=== PATIENT | female | born 1990 ===

== ENCOUNTER 2018-06-08 17:46 | Inpatient (IN) ==
[2018-06-08] MEDS ORDERED: ACETAMINOPHEN 500 MG TABLET PO STA (18:00)
[2018-06-08] MEDS ORDERED: SODIUM CHLORIDE 0.9% 1,000 ML IV STA (18:17)
[2018-06-08 18:22] LABS: Basophils % 0.2 % (0.0-0.8); Eosinophils % 0.2 % (0.00-10.9); Hematocrit 33.7 VOL% (35.7-47.0); Hemoglobin 10.8 GM/DL (12.0-16.0); Immature Granulocytes % 0.8 %; Immature Granulocytes Absolute 0.13 #; Lymphocytes # 0.8 10*3/uL (1.4-4.0); Mean Corpuscular Hemoglobin 28 PG (27-34); Mean Corpuscular Volume 88.5 FL (87-102); Mean Platelet Volume 8.9 FL (9.6-12.0); Monocytes # 0.7 10*3/uL (0.11-0.8); Monocytes % 4.1 % (1.7-12.7); Neutrophils % 89.7 % (38.7-73.9); Platelet Count 292 T/CUMM (130-400); Red Blood Count 3.81 MC/CUMM (3.8-5.5); Red Cell Distribution Width 15.8 % (9.3-17.3); White Blood Count 16.7 T/CUMM (4-12)
[2018-06-08 18:42] LABS: Albumin 2.4 G/DL (3.4-5.0); Bilirubin,Total 0.4 MG/DL (0.2-1.0); Calcium 7.8 MG/DL (8.5-10.1); Osmolality,Calculated 276.5 MOS/KG (273-304); Potassium 3.2 MMOL/L (3.5-5.1); Total Protein 6.3 G/DL (6.4-8.3)
[2018-06-08] MEDS ORDERED: SODIUM CHLORIDE 0.9% 1,800 ML IV ONE (19:35)
[2018-06-08] MEDS ORDERED: ONDANSETRON 4 MG/2 ML VIAL IV PRN (19:35)
[2018-06-08] MEDS ORDERED: POTASSIUM CHLORIDE 20 MEQ TABLET PO STA (19:46)
[2018-06-08] MEDS ORDERED: MAGNESIUM SULF RIDER 4 GM in PREMIX 1 EACH IV PRN (19:46)
[2018-06-08] MEDS ORDERED: MAGNESIUM SULF RIDER 2 GM in PREMIX 1 EACH IV PRN (19:46)
[2018-06-08] MEDS: ENOXAPARIN 40 MG/0.4 ML SYRINGE SUBCUT SCH (20:28)
[2018-06-08] MEDS: LEVOFLOXACIN INJ 500 MG in PREMIX 1 EACH IV SCH (20:31)
[2018-06-08] MEDS: SODIUM CHLORIDE 0.9% 1,000 ML IV SCH (22:42)
[2018-06-08] MEDS ORDERED: INFLUENZA VIRUS VACCINE 0.5 ML SYRINGE IM ONE (22:59)
[2018-06-08] MEDS ORDERED: PNEUMOCOCCAL VACCINE (23 VALENT) 0.5 ML VIAL IM ONE (23:06)
[2018-06-08] MEDS: ACETAMINOPHEN 325 MG TABLET PO PRN (23:38)
[2018-06-09] MEDS: MORPHINE 4 MG/1 ML VIAL IV PRN ×2 (01:47→09:36)
[2018-06-09] MEDS: SODIUM CHLORIDE 0.9% 1,000 ML IV SCH ×3 (04:05→19:50)
[2018-06-09 04:57] LABS: Basophils % 0.2 % (0.0-0.8); Eosinophils % 0.2 % (0.00-10.9); Hematocrit 32.7 VOL% (35.7-47.0); Hemoglobin 9.9 GM/DL (12.0-16.0); Immature Granulocytes % 1.1 %; Immature Granulocytes Absolute 0.17 #; Lymphocytes # 0.9 10*3/uL (1.4-4.0); Lymphocytes % 5.7 % (21.3-54.2); Mean Corpuscular HGB Conc 30.3 GM/DL (32-36); Mean Corpuscular Hemoglobin 27 PG (27-34); Mean Corpuscular Volume 89.6 FL (87-102); Mean Platelet Volume 9.3 FL (9.6-12.0); Monocytes # 1.1 10*3/uL (0.11-0.8); Monocytes % 6.9 % (1.7-12.7); Neutrophils # 13.6 10*3/uL (1.4-7.4); Neutrophils % 85.9 % (38.7-73.9); Platelet Count 252 T/CUMM (130-400); Red Blood Count 3.65 MC/CUMM (3.8-5.5); Red Cell Distribution Width 15.9 % (9.3-17.3); White Blood Count 15.9 T/CUMM (4-12)
[2018-06-09 05:26] LABS: Calcium 7.1 MG/DL (8.5-10.1); Osmolality,Calculated 279.4 MOS/KG (273-304); Potassium 3.5 MMOL/L (3.5-5.1)
[2018-06-09 05:34] LABS: Hypochromasia 1+; Microcytosis Slight; Ovalocytes Slight; Platelet Estimate Normal
[2018-06-09] MEDS ORDERED: ACETAMINOPHEN 325 MG TABLET PO PRN (16:08)
[2018-06-09] MEDS: ACETAMINOPHEN 325 MG TABLET PO PRN (16:24)
[2018-06-09] MEDS: ENOXAPARIN 40 MG/0.4 ML SYRINGE SUBCUT SCH (19:50)
[2018-06-09] MEDS: LEVOFLOXACIN INJ 500 MG in PREMIX 1 EACH IV SCH (19:50)
[2018-06-10] MEDS: SODIUM CHLORIDE 0.9% 1,000 ML IV SCH (04:24)
[2018-06-10] MEDS ORDERED: LEVOFLOXACIN 500 MG TABLET PO SCH (09:00)
[2018-06-10 12:54] VITALS: BP 135/91
== END 2018-06-10 13:48 | disposition home or self-care (01) | DRG 389 ==
LOC: EDBD → EDUNIT# → N.ED 17:46 → N.EDINP 19:35 → N.5E 22:11
PROVIDERS: ADMIT Internal Medicine Cardiovascular Disease; ATTEND Internal Medicine Cardiovascular Disease

== ENCOUNTER 2020-11-02 15:22 | Inpatient (IN) ==
[2020-11-02 16:41] LABS: Basophils % 0.3 % (0.0-0.8); Eosinophils % 0.2 % (0.00-10.9); Hematocrit 31.7 VOL% (35.7-47.0); Hemoglobin 9.7 GM/DL (12.0-16.0); Immature Granulocytes % 3.5 %; Immature Granulocytes Absolute 0.37 #; Lymphocytes # 1.8 10*3/uL (1.4-4.0); Lymphocytes % 16.9 % (21.3-54.2); Mean Corpuscular HGB Conc 30.6 GM/DL (32-36); Mean Corpuscular Volume 82.3 FL (87-102); Mean Platelet Volume 9.2 FL (9.6-12.0); Monocytes % 9.9 % (1.7-12.7); NRBC # 0.03 10*3/uL; Neutrophils % 69.2 % (38.7-73.9); Platelet Count 387 T/CUMM (130-400); Red Blood Count 3.85 MC/CUMM (3.8-5.5); Red Cell Distribution Width 17.9 % (9.3-17.3); White Blood Count 10.6 T/CUMM (4-12)
[2020-11-02 16:58] LABS: INR 0.8; PT Patient Result 9.6 SECS (10.5-12.0); Partial Thromboplastin Time 25.6 SECS (23.9-33.8)
[2020-11-02 17:05] LABS: Alanine Aminotransferase 25 U/L (13-56); Albumin 2.2 G/DL (3.4-5.0); Alkaline Phosphatase 227 U/L (45-117); Aspartate Amino Transferase 19 U/L (0-37); Bilirubin,Direct < 0.100 MG/DL (0.0-0.20); Blood Urea Nitrogen 12 MG/DL (7-18); Calcium 8.3 MG/DL (8.5-10.1); Carbon Dioxide 21 MMOL/L (21-32); Estimated Glom Filtration Rate 141 ML/MIN; Glucose 79 MG/DL (74-106); Osmolality,Calculated 273.7 MOS/KG (273-304); Potassium 4.1 MMOL/L (3.5-5.1); Sodium 138 MMOL/L (136-145); Total Protein 6.6 G/DL (6.4-8.2)
[2020-11-02 17:06] LABS: Bilirubin,Urine Negative (Negative); Blood, Urine Negative (Negative); Glucose,Urine (UA) Negative (Negative); Ketones,Urine Negative (Negative); Mucus,Urine Few /LPF (Occasional); Nitrite,Urine Negative (Negative); Protein,Urine 100 MG/DL; RBC,Urine 1 /HPF (0-4); Squamous Epithelial Cell,Urine Few /HPF (0-10); Urine Appearance Slightly Hazy (Clear); Urine Color Yellow (Yellow); Urine Specific Gravity 1.026 (1.001-1.035)
[2020-11-02 17:10] LABS: Protein/Creatinine Ratio,Urine 1.1 RATIO
[2020-11-02] MEDS ORDERED: ONDANSETRON 4 MG/2 ML VIAL IV PRN (17:26)
[2020-11-02] MEDS ORDERED: BUTORPHANOL 2 MG/ML VIAL IV PRN (17:26)
[2020-11-02] MEDS ORDERED: MEPERIDINE 50 MG/1 ML VIAL IM PRN (17:26)
[2020-11-02 18:10] LABS: Hepatitis B Surface Ag Quant < 0.10 Index; Hepatitis B Surface Ag Result Non-Reactive (NonReactive)
[2020-11-02 18:15] LABS: Barbiturates Screen,Urine Negative (Negative); Benzodiazepines Screen,Urine Negative (Negative); Cannabinoid Screen,Urine Negative (Negative); Opiate Screen,Urine Negative (Negative); Phencyclidine Screen,Urine Negative (Negative)
[2020-11-02 18:23] LABS: HIV Antigen/Antibody Result Nonreactive (Nonreactive); Rubella Antibody IgG Result Reactive (NonReactive)
[2020-11-02 19:02] LABS: RPR Confirm - Less than 1 yr REACTIVE (Nonreactive)
[2020-11-02] MEDS: LACTATED RINGERS 1,000 ML IV SCH (21:29)
[2020-11-03] MEDS: CLINDAMYCIN INJ 900 MG/50 ML PREMIX IV SCH ×2 (00:18→09:26)
[2020-11-03] MEDS ORDERED: CITRIC ACID/SODIUM CITRATE 30 ML UDCUP ONE (05:29)
[2020-11-03] MEDS ORDERED: ePHEDrine 50 MG/ML VIAL ONE (05:29)
[2020-11-03] MEDS ORDERED: fentaNYL 2 MCG/ROPIV 0.2% EPID 100 ML EPIDURAL ONE (05:29)
[2020-11-03] MEDS ORDERED: FAMOTIDINE 20 MG/2 ML VIAL IV ONE ×2 (05:30→08:10)
[2020-11-03] MEDS ORDERED: miSOPROStoL 200 MCG TABLET ONE (05:54)
[2020-11-03] MEDS ORDERED: TRANEXAMIC ACID 1,000 MG/10 ML VIAL ONE (05:54)
[2020-11-03] MEDS ORDERED: METHYLERGONOVINE 0.2 MG/1 ML AMP ONE (05:55)
[2020-11-03] MEDS ORDERED: CARBOPROST TROMETHAMINE 250 MCG/ML AMP IM ONE (05:55)
[2020-11-03] MEDS ORDERED: OXYTOCIN/LR 20 UNIT/1,000 ML BAG IV ONE ×3 (05:55→08:44)
[2020-11-03 06:45] LABS: Cord Arterial Blood HCO3 20.6 MMOL/L
[2020-11-03 06:48] LABS: Cord Venous Blood HCO3 21.4 MMOL/L; Cord Venous Blood PO2 24.6
[2020-11-03] MEDS ORDERED: OXYTOCIN/LR 20 UNIT/1,000 ML BAG IV SCH (07:00)
[2020-11-03] MEDS ORDERED: WITCH HAZEL PADS 100/JAR TOP PRN (07:41)
[2020-11-03] MEDS ORDERED: ACETAMINOPHEN 325 MG TABLET PO PRN (07:41)
[2020-11-03] MEDS ORDERED: LANOLIN 50% CREAM 0.3 OZ TUBE TOP PRN (07:41)
[2020-11-03] MEDS ORDERED: RHO(D) IMMUNE GLOBULIN 300 MCG SYRINGE IM ONE (07:41)
[2020-11-03] MEDS ORDERED: DIPH/TET/ACEL PERT BOOSTER VACCINE 0.5 ML VIAL IM ONE (07:41)
[2020-11-03] MEDS ORDERED: MEASLES/MUMPS/RUBELLA VACCINE 0.5 ML VIAL SUBCUT ONE (07:41)
[2020-11-03] MEDS ORDERED: HYDROCORTISONE 2.5% RECTAL CREAM 30 GM TUBE TOP PRN (07:41)
[2020-11-03] MEDS ORDERED: ONDANSETRON 4 MG/2 ML VIAL IV PRN (07:41)
[2020-11-03] MEDS ORDERED: BISACODYL 10 MG SUPP RECTAL PRN (07:41)
[2020-11-03] MEDS: IBUPROFEN 800 MG TABLET PO PRN ×2 (08:41→23:49)
[2020-11-03] MEDS: LACTATED RINGERS 1,000 ML IV SCH ×2 (08:46→09:55)
[2020-11-03] MEDS: DOCUSATE SODIUM 100 MG CAPSULE PO SCH ×2 (09:26→21:10)
[2020-11-03] MEDS: oxyCODONE/ACETAMINOPHEN 5-325 MG TABLET PO PRN ×4 (11:13→23:49)
[2020-11-03] MEDS: BENZOCAINE 20%/MENTHOL 0.5% SPRAY 56 GM CAN TOP PRN (14:05)
[2020-11-04 04:00] LABS: Basophils % 0.2 % (0.0-0.8); Eosinophils # 0.1 10*3/uL (0.0-0.87); Eosinophils % 0.5 % (0.00-10.9); Hematocrit 26.2 VOL% (35.7-47.0); Hemoglobin 7.8 GM/DL (12.0-16.0); Immature Granulocytes % 3.2 %; Immature Granulocytes Absolute 0.41 #; Lymphocytes # 2.3 10*3/uL (1.4-4.0); Lymphocytes % 17.4 % (21.3-54.2); Mean Corpuscular HGB Conc 29.8 GM/DL (32-36); Mean Corpuscular Volume 84.5 FL (87-102); Mean Platelet Volume 9.5 FL (9.6-12.0); Monocytes % 7.7 % (1.7-12.7); NRBC # 0.02 10*3/uL; Platelet Count 323 T/CUMM (130-400); Red Cell Distribution Width 17.8 % (9.3-17.3)
[2020-11-04] MEDS: oxyCODONE/ACETAMINOPHEN 5-325 MG TABLET PO PRN ×2 (06:37→16:17)
[2020-11-04] MEDS: DOCUSATE SODIUM 100 MG CAPSULE PO SCH ×2 (09:38→21:29)
[2020-11-04] MEDS: IBUPROFEN 800 MG TABLET PO PRN ×2 (09:39→16:17)
[2020-11-05] MEDS: IBUPROFEN 800 MG TABLET PO PRN ×2 (00:20→06:18)
[2020-11-05] MEDS: oxyCODONE/ACETAMINOPHEN 5-325 MG TABLET PO PRN ×3 (00:20→09:20)
[2020-11-05] MEDS: BENZOCAINE 20%/MENTHOL 0.5% SPRAY 56 GM CAN TOP PRN (00:23)
[2020-11-05] MEDS: DOCUSATE SODIUM 100 MG CAPSULE PO SCH (09:11)
[2020-11-05 10:22] VITALS: BP 145/74
== END 2020-11-05 13:30 | disposition home or self-care (01) | DRG 807 ==
LOC: N.LDOUT 15:22 → N.LD 15:23 → N.OB 11-03 12:03
PROVIDERS: ADMIT Obstetrics & Gynecology; ATTEND Obstetrics & Gynecology